=== PATIENT | female | born 1990 | race Hispanic/Latino ===

== ENCOUNTER 2021-07-20 21:05 | Emergency (ER) | payer SELFPAY ==
[2021-07-20] MEDS ORDERED: Bacitracin 1 PK ONE (21:55)
== END 2021-07-20 21:56 | disposition home or self-care (01) ==
LOC: CSHERS 21:05
DX: S93.402A Sprain of unspecified ligament of left ankle, initial encounter (principal); X50.1XXA Overexertion from prolonged static or awkward postures, initial encounter

== ENCOUNTER 2021-12-28 14:45 | Emergency (ER) | payer SELFPAY | END 2021-12-28 17:15 | disposition home or self-care (01) | LOC: CSHERS 14:45 | DX: F41.9 Anxiety disorder, unspecified (principal); R07.0 Pain in throat | CPT/HCPCS: 87081; 87430; 93005 ==

== ENCOUNTER 2023-11-30 18:23 | Emergency (ER) | payer SELFPAY ==
[2023-11-30] MEDS ORDERED: Ibuprofen 200 MG TAB ONE (18:54)
== END 2023-11-30 20:00 | disposition home or self-care (01) ==
LOC: CSHERS 18:23
DX: M62.838 Other muscle spasm (principal); F17.210 Nicotine dependence, cigarettes, uncomplicated
CPT/HCPCS: 93005; 99283

== ENCOUNTER 2023-12-16 16:21 | Emergency (ER) | payer SELFPAY ==
[2023-12-16 18:17] LABS: #Basophils 0.11 10x3/uL (0.0-0.2); #Eosinophils 0.43 10x3/uL (0.0-0.5); #Monocytes 0.69 10x3/uL (0.0-1.1); #Neutrophils 4.52 10x3/uL (1.5-8.4); %Basophils 1.2 % (0.0-2.0); %Eosinophils 4.6 % (0.0-6.0); %Lymphocytes 38.6 % (18.0-47.0); %Monocytes 7.3 % (0.0-10.0); %Neutrophils 47.9 % (40.0-75.0); Hemoglobin 15.8 g/dL (12.0-15.5); Mean Corpuscular HGB CONC 34.3 g/dL (32.0-36.0); Mean Corpuscular Hemoglobin 30.9 pg (27.0-33.0); Mean Corpuscular Volume 89.8 fL (81.6-98.3); Mean Platelet Volume 10.1 fL (7.4-10.4); Platelet Count 326 10x3/uL (150-450); RBC Distribution Width 12.8 % (11.5-14.5); Red Blood Cell (RBC) Count 5.12 10x6/uL (3.90-5.03); White Blood Cell (WBC) Count 9.4 10x3/uL (3.5-10.5)
[2023-12-16 18:33] LABS: ALT (SGPT) 72 U/L (8-55); AST (SGOT) 59 U/L (5-34); Albumin 3.9 g/dL (3.5-5.0); Alkaline Phosphatase 101 U/L (40-110); Anion Gap 14 mmol/L (10-20); BHCG - Serum Negative (NEGATIVE); BUN (Urea Nitrogen) 7 mg/dL (7.0-18.7); Bilirubin, Total 0.4 mg/dL (0.2-1.2); Calc. Creatinine Clearance 0 mL/min (70-130); Calcium 9.8 mg/dL (7.8-10.44); Carbon Dioxide 24 mmol/L (22-29); Chloride 103 mmol/L (98-107); Estimated GFR 118; Globulin 4.3 g/dL (2.4-3.5); Glucose 99 mg/dL (70-105); Magnesium 2.1 mg/dL (1.6-2.6); Potassium 4.1 mmol/L (3.5-5.1); Protein, Total 8.2 g/dL (6.0-8.3); Sodium 137 mmol/L (136-145)
[2023-12-16 18:34] LABS: Pregs Control Background? CLEAR/WHITE (CLR/WHITE); Pregs Control Bar Appear? YES (CONTROL BAR)
== END 2023-12-16 19:05 | disposition home or self-care (01) ==
LOC: CSHERS 16:21
DX: R20.2 Paresthesia of skin (principal); F17.210 Nicotine dependence, cigarettes, uncomplicated
CPT/HCPCS: 36415; 72125; 80053; 83735; 84703; 85025

== ENCOUNTER 2024-10-02 19:48 | Day surgery (SDC) | payer MEDICAID ==
[2024-10-02] MEDS ORDERED: hydrALAZINE 20 MG/ML VIAL SLOW IVP PRN (20:16)
[2024-10-02 21:09] LABS: ALT (SGPT) 12 U/L (Less than 34); AST (SGOT) 29 U/L (11-34); Albumin 3.3 g/dL (3.1-4.5); Alkaline Phosphatase 99 U/L (40-110); Anion Gap 12 mmol/L (10-20); BUN (Urea Nitrogen) 6 mg/dL (7.0-18.7); Bilirubin, Total 0.2 mg/dL (0.3-1.2); Calc. Creatinine Clearance 0 mL/min (70-130); Calcium 8.8 mg/dL (7.8-10.44); Carbon Dioxide 23 mmol/L (22-29); Chloride 105 mmol/L (98-107); Globulin 4.2 g/dL (2.4-3.5); Glucose 93 mg/dL (70-105); Potassium 3.4 mmol/L (3.5-5.1); Sodium 137 mmol/L (136-145)
[2024-10-02] MEDS ORDERED: Famotidine 40 MG (4 mL) VIAL SLOW IVP SCH (21:15)
[2024-10-02 21:23] LABS: Glucose, Urine (Dipstick) Normal (Negative); Leukocyte Negative (Negative); Protein, Urine (Dipstick) 15 mg/dl (Neg-Trace); Specific Gravity, Urine 1.010 (1.005-1.030)
[2024-10-02] MEDS: Famotidine/PF 20 mg/2ml Vial SLOW IVP SCH (21:39)
[2024-10-02] MEDS: Ondansetron PF 4 MG/2 ML Vial IVP SCH (21:39)
[2024-10-02 21:47] LABS: Bacteria/HPF None Seen HPF (None Seen); CAUTI Indications for Culture Pregnancy; RBC/HPF None Seen HPF (0-3); WBC/HPF None Seen HPF (0-3)
[2024-10-02 21:50] LABS: Urine Culture Reflex Yes Yes
[2024-10-02] MEDS ORDERED: Promethazine HCl 12.5 MG, Admixture Fee 1 EACH in Sodium Chloride 0.9% 50 ML IVPB SCH (23:00)
== END 2024-10-03 00:07 | disposition home or self-care (01) ==
LOC: CSHLD/OP 19:48
PROVIDERS: ATTEND Family Medicine
DX: O99.613 Diseases of the digestive system complicating pregnancy, third trimester (principal); K21.9 Gastro-esophageal reflux disease without esophagitis; O09.523 Supervision of elderly multigravida, third trimester; O09.43 Supervision of pregnancy with grand multiparity, third trimester; Z3A.28 28 weeks gestation of pregnancy; Z79.899 Other long term (current) drug therapy
CPT/HCPCS: 36415; 76705; 80053; 81001; 87086; 96360; 99284; J1308; J2405; J2550

== ENCOUNTER 2024-10-31 19:18 | Day surgery (SDC) | payer MEDICAID ==
[2024-10-31 19:45] VITALS: BMI 25.9
== END 2024-10-31 22:20 | disposition home or self-care (01) ==
LOC: CSHLD/OP 19:18
PROVIDERS: ATTEND Family Medicine
DX: O36.8130 Decreased fetal movements, third trimester, not applicable or unspecified (principal); Z3A.33 33 weeks gestation of pregnancy
CPT/HCPCS: 76817; 76819; 99283

== ENCOUNTER 2024-12-12 14:01 | Day surgery (SDC) | payer MEDICAID ==
[2024-12-12 14:33] VITALS: BMI 27.3
[2024-12-12] MEDS ORDERED: hydrALAZINE 20 MG/ML VIAL SLOW IVP PRN (14:46)
[2024-12-12 15:45] LABS: Fetal Membranes Rupture No Membranes Rupture (No Rupture)
== END 2024-12-12 16:59 | disposition home or self-care (01) ==
LOC: CSHLD/OP 14:01
PROVIDERS: ATTEND Family Medicine
DX: O09.523 Supervision of elderly multigravida, third trimester (principal); O99.313 Alcohol use complicating pregnancy, third trimester; O99.891 Other specified diseases and conditions complicating pregnancy; R79.89 Other specified abnormal findings of blood chemistry; F41.8 Other specified anxiety disorders; Z3A.38 38 weeks gestation of pregnancy
CPT/HCPCS: 84112; 87480; 87510; 87660; 96360; 99285

== ENCOUNTER 2024-12-17 11:03 | Day surgery (SDC) | payer MEDICAID ==
[2024-12-17] MEDS ORDERED: hydrALAZINE 20 MG/ML VIAL SLOW IVP PRN (11:51)
[2024-12-17] MEDS ORDERED: Acetaminophen 325 MG TAB PO PRN (11:56)
== END 2024-12-17 14:22 | disposition home or self-care (01) ==
LOC: CSHLD/OP 11:03
PROVIDERS: ATTEND Obstetrics & Gynecology
DX: O47.1 False labor at or after 37 completed weeks of gestation (principal); O36.8130 Decreased fetal movements, third trimester, not applicable or unspecified; O09.523 Supervision of elderly multigravida, third trimester; Z67.40 Type O blood, Rh positive; Z3A.38 38 weeks gestation of pregnancy; Z79.899 Other long term (current) drug therapy
CPT/HCPCS: 76819; 99283

== ENCOUNTER 2024-12-27 16:52 | Emergency (ER) | payer MEDICAID ==
[2024-12-27 17:32] LABS: #Basophils 0.05 10x3/uL (0.0-0.2); #Eosinophils 0.37 10x3/uL (0.0-0.5); #Monocytes 0.82 10x3/uL (0.0-1.1); #Neutrophils 6.57 10x3/uL (1.5-8.4); %Basophils 0.4 % (0.0-2.0); %Eosinophils 3.1 % (0.0-6.0); %Lymphocytes 32.2 % (18.0-47.0); %Monocytes 7.0 % (0.0-10.0); %Neutrophils 55.9 % (40.0-75.0); Hematocrit 32.5 % (34.9-44.5); Hemoglobin 10.4 g/dL (12.0-15.5); Mean Corpuscular Hemoglobin 26.5 pg (27.0-33.0); Mean Corpuscular Volume 82.7 fL (81.6-98.3); Platelet Count 430 10x3/uL (150-450); Red Blood Cell (RBC) Count 3.93 10x6/uL (3.90-5.03); White Blood Cell (WBC) Count 11.77 10x3/uL (3.5-10.5)
[2024-12-27 17:36] LABS: Glucose, Urine (Dipstick) Normal (Negative); Leukocyte Negative (Negative); Protein, Urine (Dipstick) Negative (Neg-Trace); Specific Gravity, Urine 1.010 (1.005-1.030)
[2024-12-27 17:38] LABS: Pregnancy Test - Urine (BHCG) Negative (Negative); Pregu Control Background? CLEAR/WHITE (CLR/WHITE); Pregu Control Bar Appear? YES (CONTROL BAR)
[2024-12-27 17:56] LABS: Bacteria/HPF 1+ HPF (None Seen); CAUTI Indications for Culture Pelvic or flank pain; WBC/HPF 0-3 HPF (0-3)
[2024-12-27 17:58] LABS: ALT (SGPT) 40 U/L (Less than 34); AST (SGOT) 62 U/L (11-34); Albumin 3.1 g/dL (3.1-4.5); Alkaline Phosphatase 134 U/L (40-110); Anion Gap 14 mmol/L (10-20); BUN (Urea Nitrogen) 10 mg/dL (7.0-18.7); Bilirubin, Total 0.2 mg/dL (0.3-1.2); Calc. Creatinine Clearance 0 mL/min (70-130); Calcium 9.0 mg/dL (7.8-10.44); Carbon Dioxide 21 mmol/L (22-29); Chloride 108 mmol/L (98-107); Globulin 3.8 g/dL (2.4-3.5); Glucose 96 mg/dL (70-105); Lipase 23 U/L (8-78); Potassium 4.2 mmol/L (3.5-5.1); Sodium 139 mmol/L (136-145)
[2024-12-27 17:58] LABS: Yeast-Budding 1+ HPF (None Seen)
[2024-12-27 18:00] LABS: Urine Culture Reflex No No
[2024-12-27 19:05] LABS: Troponin I Less than 0.010 ng/mL (< 0.028)
[2024-12-27] MEDS ORDERED: Acetaminophen 500 MG TAB ONE (20:34)
== END 2024-12-27 21:01 | disposition home or self-care (01) ==
LOC: CSHERS 16:52
DX: O99.893 Other specified diseases and conditions complicating puerperium (principal); R10.11 Right upper quadrant pain; O98.83 Other maternal infectious and parasitic diseases complicating the puerperium; B37.9 Candidiasis, unspecified; O99.335 Smoking (tobacco) complicating the puerperium; F17.210 Nicotine dependence, cigarettes, uncomplicated
CPT/HCPCS: 36415; 71045; 76705; 80053; 81001; 81025; 83690; 84484; 85025; 93005